=== PATIENT | male | born 1945 | race Caucasian/White ===

== ENCOUNTER 2021-07-20 20:01 | Inpatient (IN) | payer MEDICARE ==
[~2021-07-20] VITALS: Ht 177.8 cm; Wt 83.9 kg
[2021-07-20 20:12] VITALS: BP 197/110
[2021-07-20] MEDS ORDERED: LIPITOR10 MG PO (20:17)
[2021-07-20] MEDS ORDERED: TAMSULOSIN HCL0.4 MG PO (20:17)
[2021-07-20] MEDS ORDERED: GLIMEPIRIDE1 MG PO (20:17)
[2021-07-20 22:06] LABS: ABSOLUTE BASOPHILS 0.1 thou/uL (0.0-0.2); ABSOLUTE EOSINOPHILS 0.4 thou/uL (0.0-0.7); ABSOLUTE LYMPHOCYTES 2.7 thou/uL (0.8-5.3); ABSOLUTE MONOCYTES 0.8 thou/uL (0.0-1.2); ABSOLUTE NEUTROPHILS 5.8 thou/uL (1.6-8.1); BASOPHILS 0.9 %; EOSINOPHILS 3.9 %; HEMATOCRIT 49.9 % (42.0-52.0); HEMOGLOBIN 16.9 gm/dL (14.0-18.0); LYMPHOCYTES 27.8 %; MCH 30.3 pg (26.0-34.0); MCHC 33.9 g/dL (28.0-37.0); MCV 89.4 fL (80.0-100.0); MONOCYTES 8.5 %; MPV 8.2 fl. (7.2-11.1); NUCLEATED RBCS 0 /100WBC; PLATELET COUNT* 202 thou/uL (150-400); POLYS 58.9 %; RBC 5.59 mil/uL (4.50-6.00); RDW-CV 13.6 % (10.5-14.5); WBC 9.8 thou/uL (4.0-11.0)
[2021-07-20 22:10] LABS: CALCIUM 9.2 mg/dL (8.5-10.1); CREATININE 1.2 mg/dL (0.6-1.3); POTASSIUM 3.8 mmol/L (3.5-5.1)
[2021-07-20 22:19] LABS: ALBUMIN 4.2 g/dL (3.4-5.0); TOTAL PROTEIN 7.7 g/dL (6.4-8.2)
[2021-07-20 23:30] VITALS: BP 183/100
[2021-07-21 00:16] VITALS: BP 192/83
[2021-07-21 04:11] VITALS: BP 182/85
[2021-07-21 08:00] VITALS: BP 138/75; BP 158/92
[2021-07-21 08:07] LABS: URINE BILIRUBIN NEGATIVE (Negative); URINE BLOOD NEGATIVE (Negative); URINE CLARITY CLEAR; URINE COLOR YELLOW; URINE GLUCOSE-RANDOM 2+ (Negative); URINE KETONES NEGATIVE (Negative); URINE LEUKOCYTES-REFLEX NEGATIVE (Negative); URINE NITRITE-REFLEX NEGATIVE (Negative); URINE PROTEIN NEGATIVE (Negative); URINE UROBILINOGEN 0.2 E.U./dl (0.2-1.0)
[2021-07-21] MEDS ORDERED: ATORVASTATIN CA10 MG PO (18:40)
[2021-07-21] MEDS ORDERED: LISINOPRIL5 MG PO (18:41)
[2021-07-21] MEDS ORDERED: CARVEDILOL25 MG (18:42)
[2021-07-21] MEDS ORDERED: CATAPRES0.2 MG (18:42)
[2021-07-21] MEDS ORDERED: VERAPAMIL HCL180 M4 (18:43)
[2021-07-21] MEDS ORDERED: IRBESARTAN300 MG (18:43)
[2021-07-21 20:18] VITALS: BP 191/99
[2021-07-22 00:13] VITALS: BP 128/69
[2021-07-22 08:00] VITALS: BP 167/79
[2021-07-22 16:26] VITALS: BP 117/76
[2021-07-22 19:30] VITALS: BP 97/56
[2021-07-23 00:07] VITALS: BP 113/48
[2021-07-23 08:00] VITALS: BP 100/51
--- NOTE | 2021-07-23 16:19 | CON ---
[address] [address] CONSULTATION Name: SGSELIN T Room: [address] IN .R.#: [id number] Admission: 07/20/21 Attend Phys: Bryan Ferguson Discharge: Date of : 43 Report #: [id number] THIS REPORT FOR: cc: [facility] - Clinic physician unknown [facility] - Clinic physician unknown Lawrence Allen II DO ~ DATE OF CONSULTATION: 07/21/2021 CHIEF COMPLAINT: Right leg pain. HISTORY OF PRESENT ILLNESS: The patient is a 76-year-old male with prior diabetes, presents with right thigh and hip pain. States that it started yesterday while he was walking his dog after he was mowing his lawn. Denies any traumatic events, did not fall; however, he has pain laterally over the greater trochanter. States that it lasts for several hours throughout the day. It is sharp and stabbing. It does not really radiate; however, he has difficulty moving the leg due to this. Rates his pain 4-10/10 with movement and weightbearing and lying on the side. The patient states that fentanyl has not been helping resolve his pain. He has history of neuropathy. ALLERGIES: METFORMIN, OLMESARTAN. PAST MEDICAL HISTORY: Hypertension, diabetes. PAST SURGICAL HISTORY: Prior cholecystectomy and right rotator cuff surgery. SOCIAL HISTORY: The patient denies illicit drug use. Does smoke tobacco and drinks alcohol. REVIEW OF SYSTEMS: The patient has a negative 12-system review of systems except for pertinent positives in the HPI. PHYSICAL EXAMINATION: GENERAL: The patient is alert and oriented, cooperative with exam. HEENT: Head: Normocephalic, atraumatic. Eyes: Pupils equal, round, reactive to light and accommodation. Nose: Clear without ulcerations. Mouth: Moist mucous membranes and pink. NECK: Supple, no JVD, no bruit. CARDIOVASCULAR: Regular rate and rhythm. Cap refill is normal. LUNGS: Clear to auscultation bilaterally. No wheezes or crackles. ABDOMEN: Soft, bowel sounds present, no masses, no HSM. EXTREMITIES: The patient's right lower extremity does have pain over the greater trochanter region, also has pain with flexion and extension of the hip, internal and external rotation, is able to do this but has had pain laterally. Cap refill is brisk throughout [place] [address] CONSULTATION Name: SELIN BETTENCOURT Room: [address]#: [id number] Admission: 07/20/21 Attend Phys: Bryan Ferguson Discharge: Date of : 43 Report #: [id number] SKIN: Normal in color. PSYCHIATRIC: The patient has appropriate mood and affect. NEUROLOGIC: The patient has intact sensation throughout the extremities. IMAGING: We got a femur x-ray on the right, does show subtle lucency through the greater trochanter, nondisplaced fracture cannot be excluded. Remainder of femur was normal. No foreign bodies. Moderate joint space narrowing in the knee consistent with osteoarthritis. ASSESSMENT: Right hip and leg pain, potential nondisplaced greater trochanteric fracture, diabetes type 2, peripheral neuropathy. PLAN: At this time, due to the patient's possible nondisplaced fracture, would recommend 50% weightbearing to the lower extremity. PT, OT to evaluate for range of motion, continue to monitor his glucose levels and I will continue to treat nonoperatively at this time. I appreciate the consultation. <ELECTRONICALLY SIGNED> By: Lawrence Allen II, DO 07/23/21 1619 01 Lawrence Allen II, DO /nt
[2021-07-23 16:49] VITALS: BP 160/74
[2021-07-23 19:38] VITALS: BP 155/79
[2021-07-24] VITALS: BP 126/62
[2021-07-24 08:00] VITALS: BP 135/63
[2021-07-24 16:00] VITALS: BP 115/51
[2021-07-24 19:32] VITALS: BP 165/68
[2021-07-25] VITALS: BP 160/77
[2021-07-25 04:13] LABS: CALCIUM 8.7 mg/dL (8.5-10.1); CREATININE 1.2 mg/dL (0.6-1.3); PHOSPHORUS* 3.1 mg/dL (2.5-4.9); POTASSIUM 4.1 mmol/L (3.5-5.1)
[2021-07-25 08:00] VITALS: BP 125/75
[2021-07-25 15:36] VITALS: BP 117/46
[2021-07-25 19:45] VITALS: BP 168/68
[2021-07-26 07:55] VITALS: BP 140/60
[2021-07-26 16:12] VITALS: BP 123/71
[2021-07-26 20:00] VITALS: BP 141/61
[2021-07-27 16:19] VITALS: BP 120/65
[2021-07-27 20:00] VITALS: BP 112/56
[2021-07-28 08:10] VITALS: BP 149/76
[2021-07-28 12:11] VITALS: BP 146/76
[2021-07-28 12:20] VITALS: BP 146/76
[2021-07-28 13:06] VITALS: BP 146/76
[2021-07-28] MEDS ORDERED: FLEXERIL PO (13:22)
[2021-07-28] MEDS ORDERED: NORCO7.5 PO (13:22)
[2021-07-28] MEDS ORDERED: NEURONTIN 300M300 M2 PO (13:23)
[2021-07-28] MEDS ORDERED: SENEXON-S 50-81 EACH PO (13:24)
[2021-07-28] MEDS ORDERED: LIDOPATCH1 EACH TOP (13:24)
[2021-07-28] MEDS ORDERED: AUGMENTIN 875-1 EACH PO (13:28)
[2021-07-28 15:48] VITALS: BP 146/76
[2021-07-28 16:26] VITALS: BP 146/76
[2021-07-28 18:06] LABS: IgA 218 mg/dL (61-437); IgG 601 mg/dL (603-1613)
[2021-07-28 19:07] LABS: IgM 19 mg/dL (15-143)
[2021-07-31 21:05] LABS: ANA INTERPRETATION Negative (())
== END 2021-07-28 12:15 | disposition home health service (06) | DRG 74 ==
LOC: M.ERS 20:01 → M.3W 21:46 → M.TBA-ER 21:46 → M.3W 23:37
PROVIDERS: Physician Assistant; Psychiatry & Neurology Neuromuscular Medicine; ADMIT Internal Medicine; ATTEND Internal Medicine
PROC: 5A09357 Assistance with Respiratory Ventilation, Less than 24 Consecutive Hours, Continuous Positive Airway Pressure (ICD-10-PCS; principal; 2021-07-24)
DX: E11.42 Type 2 diabetes mellitus with diabetic polyneuropathy (principal); M48.061 Spinal stenosis, lumbar region without neurogenic claudication; I10 Essential (primary) hypertension; F17.210 Nicotine dependence, cigarettes, uncomplicated; K59.00 Constipation, unspecified; E11.65 Type 2 diabetes mellitus with hyperglycemia; Z20.822 Contact with and (suspected) exposure to COVID-19; Z23 Encounter for immunization; Z90.49 Acquired absence of other specified parts of digestive tract; Z88.8 Allergy status to other drugs, medicaments and biological substances